=== PATIENT | male | born 1965 | race Caucasian/White ===

== ENCOUNTER → 2025-01-13 08:55 | Outpatient (REF) | payer OTHER, SELFPAY | LOC: HWRCS 08:55 | PROVIDERS: ATTENDING PHYSICIAN Family Medicine | DX: R07.9 Chest pain, unspecified (principal) | CPT/HCPCS: 93017; 93306 ==

== ENCOUNTER 2025-01-23 10:47 | Outpatient (RCR) | payer OTHER, SELFPAY ==
[2025-01-23 11:00] VITALS: BP 142/82
[2025-01-23 11:30] VITALS: BP 123/78
[2025-01-23 11:40] VITALS: BP 123/75
== END 2025-01-25 23:59 | disposition home or self-care (01) ==
LOC: OID 10:47
PROVIDERS: ATTENDING PHYSICIAN Family Medicine
DX: E83.110 Hereditary hemochromatosis (principal)
CPT/HCPCS: 99195

== ENCOUNTER 2025-03-20 10:34 | Outpatient (RCR) | payer OTHER, SELFPAY ==
[2025-03-20 11:11] LABS: Hematocrit 40.9 % (39.0-52.0); Hemoglobin 14.3 g/dL (13.0-18.0); Mean Corp Hgb Conc. 35.0 g/dL (33.0-37.0); Mean Corpuscular Volume 89.1 fL (80.0-94.0); Platelet Count 194 10^3/uL (130-400); Red Cell Dist. Width 12.3 % (11.5-14.5)
[2025-03-20 11:34] VITALS: BP 125/77
[2025-03-20 12:10] VITALS: BP 141/79
[2025-03-20 12:15] VITALS: BP 165/86
== END 2025-03-27 23:59 | disposition home or self-care (01) ==
LOC: OID 10:34
PROVIDERS: ATTENDING PHYSICIAN Family Medicine
DX: E83.110 Hereditary hemochromatosis (principal)
CPT/HCPCS: 36415; 85025; 99195

== ENCOUNTER 2025-05-14 14:57 | Outpatient (RCR) | payer OTHER, SELFPAY ==
[2025-05-14 15:10] LABS: Hematocrit 40.1 % (39.0-52.0); Hemoglobin 13.8 g/dL (13.0-18.0); Mean Corp Hgb Conc. 34.4 g/dL (33.0-37.0); Mean Corpuscular Volume 89.1 fL (80.0-94.0); Platelet Count 203 10^3/uL (130-400); Red Cell Dist. Width 12.3 % (11.5-14.5)
[2025-05-14 15:21] VITALS: BP 163/85
[2025-05-14 15:52] VITALS: BP 142/84
[2025-05-14 15:54] VITALS: BP 158/99
== END 2025-05-27 23:59 | disposition home or self-care (01) ==
LOC: OID 14:57
PROVIDERS: ATTENDING PHYSICIAN Family Medicine
DX: E83.110 Hereditary hemochromatosis (principal)
CPT/HCPCS: 36415; 85025; 99195